=== PATIENT | male | born 1945 ===

== ENCOUNTER 2023-09-14 11:00 | Outpatient (CLI) | payer OTHER, SELFPAY ==
--- NOTE | ~2023-09-14 | MR_ITS ---
EXAMINATION: MR ankle LT wo con DATE: 09/14/2023 11:33 INDICATION: Left ankle pain TECHNIQUE: Magnetic resonance imaging (MRI) of the left ankle was performed without intravenous contr ast. Sequences included sagittal, coronal, and axial proton-density weighted fast spin echo without a nd with fat saturation. COMPARISON: None. FINDINGS: Medial ankle ligaments: Deep and superficial deltoid ligaments as well as the spring ligament are normal. Lateral ankle ligaments: There is thickening and mild increased signal of the anterior and posterior inferior tibiofibular lig aments as well as the anterior and posterior talofibular and calcaneofibular ligaments without signif icant surrounding soft tissue edema consistent with scarring related to chronic lateral ankle sprain. Tendons: Achilles tendon is normal. The peroneus longus and brevis tendons are normal. The tibialis anterior a nd extensor hallucis longus and extensor digitorum longus tendons are normal. The tibialis posterior, flexor digitorum longus and flexor hallucis longus tendons are normal. Plantar fascia: Small plantar calcaneal spur with mild thickening of the proximal plantar aponeurosis consistent with mild chronic enthesopathy. No associated marrow or soft tissue edema about the origin of the plantar aponeurosis to suggest acute plantar fasciitis. There is mild fusiform thickening of the central com ponent of the plantar aponeurosis proximally 3 cm from its origin consistent with a plantar fibroma. Bones/other: Bone alignment is normal. No fracture or pathologic marrow replacing process. There is polyarticular osteoarthritis, severe at the subtalar joint with full-thickness cartilage loss with cortical remodel ing and underlying subarticular cystlike changes at the posterior facet. Additional moderate osteoart hritis at the articulation at the talonavicular and medial and mid naviculocuneiform articulations wi th deep chondral ulceration with subarticular cystlike and edema-like signal changes. Mild osteoarthr itis at the ankle and several tarsal metatarsal joints. Fluid: Small joint effusion with prominent synovitis at the ankle, subtalar and talonavicular joints. Increa sed fluid signal and synovitis at the sinus Tarsi which can be seen with sinus Tarsi syndrome. IMPRESSION: 1. 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 2. Scarring consistent with sequela of chronic sprains of the lateral ankle ligaments including the a nterior and posterior distal tibiofibular ligaments. 3. 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 Reviewed, dictated and finalized at location A. IMPRESSION: 1. 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 2. Scarring consistent with sequela of chronic sprains of the lateral ankle lig aments including the anterior and posterior distal tibiofibular ligaments. 3. 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
== END 2023-09-14 11:01 ==
LOC: MICIMG 11:01
DX: M19.072 Primary osteoarthritis, left ankle and foot (principal)
CPT/HCPCS: 73721